=== PATIENT | female | born 1980 | race American Indian/Alaskan Native ===

== ENCOUNTER 2019-02-27 16:34 | Emergency (ER) | payer MEDICAID ==
[2019-02-27 16:34] VITALS: BMI 29.1
--- NOTE | 2019-02-27 17:34 | RAD ---
PROCEDURE: Right ankle radiographs, three views HISTORY: s/p fall COMPARISON: None available. FINDINGS: BONES: No acute displaced fracture. JOINTS: No dislocation. SOFT TISSUES: Soft tissue swelling. No evidence of radiopaque foreign body. OTHER FINDINGS: None. IMPRESSION: Soft tissue swelling. No acute displaced fracture, dislocation, or significant joint effusion identified. If symptoms persist or if there is clinical concern, x-ray follow-up in 7-10 days should be considered.
--- NOTE | 2019-02-27 17:39 | C.PDOC ---
History Of Present Illness Patient is a 39 year old female who presents to the ED s/p fall today and is c/o right ankle and right foot pain. She states that she was walking down the stairs when she lost her footing and fell down 3 steps at home. She rates her pain as a 5/10 and describes it as sharp. She denies any LOC, head injury, weakness, numbness, or tingling. Patient is ambulating with a limp. Chief Complaint (Nursing): Lower Extremity Problem/Injury History Per: Patient History/Exam Limitations: no limitations Onset/Duration Of Symptoms: Hrs Pain Scale Rating Of: 5 Recent travel outside of the [place]: No Additional History Per: Patient Past Medical History Reviewed: Historical Data, Nursing Documentation, Vital Signs Vital Signs: Last Vital Signs Temp 98.8 F 02/27/19 16:39 Pulse 70 02/27/19 16:39 Resp 20 02/27/19 16:39 BP 122/69 02/27/19 16:39 Pulse Ox 97 02/27/19 16:39 Primary Care Provider: Non [facility] Provider, - Medical History PMH: No Chronic Diseases Denies: Depression Surgical History: No Surg Hx Family History: States: No Known Family Hx - Social History Hx Tobacco Use: Yes Hx Alcohol Use: No Hx Substance Use: No - Immunization History Hx Tetanus Toxoid Vaccination: Yes Hx Influenza Vaccination: No Hx Pneumococcal Vaccination: No Review Of Systems Musculoskeletal: Positive for: Foot Pain (right ankle and right foot) Neurological: Negative for: Weakness, Numbness, Other (tingling, LOC, head injury) Physical Exam - Physical Exam Appears: Non-toxic, No Acute Distress Skin: Warm, Dry Head: Atraumatic, Normacephalic Eye(s): bilateral: Normal Inspection Neck: Normal ROM, Supple Chest: Symmetrical Cardiovascular: Rhythm Regular Respiratory: Normal Breath Sounds, No Accessory Muscle Use, No Wheezing Gastrointestinal/Abdominal: Soft, No Tenderness Extremity: Normal ROM (limited rom due to pain of right ankle and foot), Tenderness (tenderness to palaption on both sides. No ecchymosis or erythema), No Calf Tenderness, Capillary Refill (less than 2 seconds), No Deformity, Swelling (edema laterally with tenderness to touch on lateral angle and medial foot under great toe ) Extremity: Right: Limited ROM To Joint, Painful To Bear Weight Pulses: Left Dorsalis Pedis: Normal, Right Dorsalis Pedis: Normal Neurological/Psych: Oriented x3, Normal Speech, Normal Cognition, Normal Sensation Gait: Unsteady ED Course And Treatment O2 Sat by Pulse Oximetry: 97 (on RA) Pulse Ox Interpretation: Normal - Other Rad Xray Rt Ankle X-Ray: Viewed By Me, Read By Radiologist Interpretation: PROCEDURE: Right ankle radiographs, three views. HISTORY: s/p fall. COMPARISON: None available. FINDINGS: BONES: No acute displaced fracture. JOINTS: No dislocation. SOFT TISSUES: Soft tissue swelling. No evidence of radiopaque foreign body. OTHER FINDINGS: None. IMPRESSION: Soft tissue swelling. No acute displaced fracture, dislocation, or significant joint effusion identified. If symptoms persist or if there is clinical concern, x-ray follow-up in 7-10 days should be considered. right foot xray X-Ray: Viewed By Me, Read By Radiologist Interpretation: Accession No. : [id number]. Patient Name / ID : CLAU EVANS / [id number]. Exam Date : 02/27/2019 17:10:19 ( Addendum_Approved ). Study Comment : Sex / Age : F / 39Y. Creator : Delbert Hanna. Dictator : Cesilia Long MD. Rural Carrier : Paraoptometric : Cesilia Long MD. Approver2 : Report Date : 02/28/2019 11:28:22. My Comment : . ADDENDUM: Please note additional images were also submitted to this folder of the right knee for dictation. No acute displaced fracture, dislocation, or significant joint effusion of the right knee identified. [ Addendum Report Added by Cesilia Long MD at 02/28/2019 14:43:48 ]. PROCEDURE: Right foot radiographs. 3 views. HISTORY: s/p fall. COMPARISON: None available. FINDINGS: Due to technical difficulties, the study has been resubmitted for dictation. BONES: No acute displaced fracture. JOINTS: No dislocation. SOFT TISSUES: Unremarkable. No evidence of radiopaque foreign body. OTHER FINDINGS: None. IMPRESSION: No acute displaced fracture, dislocation, or significant joint effusion identified. If symptoms persist, or if there is continued clinical concern, x-ray follow-up in 7-10 days should be considered. Medical Decision Making Medical Decision Making: Plan: Tylenol 650mg PO Xray Rt Ankle and Xray Rt Foot ordered and reviewed- unremarkable arsenio and surgical shoe placed Naproxen twice a day Rest, Ice, Compression, and Elevation Follow up in Podiatry clinic if symptoms persist Return to the ED if symptoms worsen Patient verbalizes understanding and is in agreement with plan. Patient is stable for discharge. Disposition Counseled Patient/Family Regarding: Studies Performed, Diagnosis, Need For Followup, Rx Given - Disposition Referrals: Podiatry Clinic [Outside] Disposition: HOME/ ROUTINE Disposition Time: 18:00 Condition: STABLE Additional Instructions: Naproxen twice a day Rest, Ice, Compression, and Elevation Follow up in Podiatry clinic if symptoms persist Return to the ED if symptoms worsen Prescriptions: Naproxen [Naprosyn] 500 mg PO BID #30 tablet Instructions: Ankle Sprain (DC), Foot Sprain (DC) Forms: [employer] (Italian) - Clinical Impression Clinical Impression: Right ankle pain, Right foot pain, Sprain and strain - PA / CHIEF ESTIMATOR / Resident Statement MD/DO has reviewed & agrees with the documentation as recorded. - Scribe Statement The provider has reviewed the documentation as recorded by the Amauri Parra All medical record entries made by the Vandanaibdolores were at my direction and pe rsonally dictated by me. I have reviewed the chart and agree that the record accurately reflects my personal performance of the history, physical exam, medical decision making, and the department course for this patient. I have also personally directed, reviewed, and agree with the discharge instructions and disposition.
--- NOTE | 2019-02-27 17:57 | RAD ---
PROCEDURE: Right foot radiographs. 3 views. HISTORY: s/p fall COMPARISON: None available. FINDINGS: Due to technical difficulties, the study has been resubmitted for dictation. BONES: No acute displaced fracture. JOINTS: No dislocation. SOFT TISSUES: Unremarkable. No evidence of radiopaque foreign body. OTHER FINDINGS: None. IMPRESSION: No acute displaced fracture, dislocation, or significant joint effusion identified. If symptoms persist, or if there is continued clinical concern, x-ray follow-up in 7-10 days should be considered.
[2019-02-27 18:41] VITALS: BP 119/69; PULSE 68; RESP 18; TEMP 98
[2019-02-27 19:02] VITALS: O2SAT 97
== END 2019-02-27 18:41 | disposition home or self-care (01) ==
LOC: C.ER 16:34
DX: S93.401A Sprain of unspecified ligament of right ankle, initial encounter (principal); W10.9XXA Fall (on) (from) unspecified stairs and steps, initial encounter; S96.911A Strain of unspecified muscle and tendon at ankle and foot level, right foot, initial encounter; M25.571 Pain in right ankle and joints of right foot